=== PATIENT | female | born 1955 | race Caucasian/White ===

== ENCOUNTER 2021-01-30 11:23 | Emergency (ER) | payer MEDICARE, OTHER ==
[2021-01-30] MEDS ORDERED: Sodium Chloride 0.9% 10 ML Syringe FLUSH PRN (11:33)
[2021-01-30] MEDS ORDERED: Morphine 2 MG/ML SYRINGE IVPUSH ONE (11:38)
--- NOTE | 2021-01-30 12:10 | EDM.PDOC ---
ED HPI GENERAL MEDICAL PROBLEM - General Chief Complaint: Abdominal Pain Time Seen by Provider: 01/30/21 11:45 Source of Information: Reports: Patient, Family History Limitations: Reports: No Limitations - History of Present Illness INITIAL COMMENTS - FREE TEXT/NARRATIVE: Pt. presents to ER with complaints of diffuse abdominal discomfort. Pt. has been experiencing this symptoms since Friday. She had a normal BM yesterday. Denies any bloody stools. Denies any nausea or vomiting. No chest pain or shortness of breath. Pt. has a history of diverticulitis in the past. Pt. has a history of dementia and relies largely on her to provide history. Pt. denies any fever or chills. Onset: Today Location: Reports: Abdomen Abdomen Pain Score (Numeric/FACES): 8 - Related Data Allergies Allergy/AdvReac Type Severity Reaction Status Date / Time Latex, Natural Rubber Allergy Rash Verified 08/05/13 10:34 Home Meds: Home Meds Acetaminophen/Diphenhydramine [Tylenol Pm Ex-Strength Caplet] 1 each PO ASDIRECTED PRN 01/30/21 [History] Amoxicillin 500 mg PO TID 01/30/21 [History] Aspirin [Ecotrin EC] 81 mg PO DAILY 01/30/21 [History] Cholecalciferol (Vitamin D3) [Vitamin D3] 100 mcg PO DAILY 01/30/21 [History] Cholecalciferol (Vitamin D3) [Vitamin D3] 125 mcg PO BID 01/30/21 [History] Cyanocobalamin (Vitamin B12) [Vitamin B12] 2,000 mcg PO DAILY 01/30/21 [History] Donepezil HCl [Aricept] 5 mg PO DAILY 01/30/21 [History] Empagliflozin [Jardiance] 10 mg PO DAILY 01/30/21 [History] Gabapentin [Neurontin] 100 mg PO BID 01/30/21 [History] Hydrocodone/Acetaminophen [HYDROcodone-Acetaminophen 5-325 MG] 1 each PO ASDIRECTED PRN 01/30/21 [History] Levothyroxine 150 mcg PO ACBREAKFAST 01/30/21 [History] Losartan [Cozaar] 50 mg PO DAILY 01/30/21 [History] Orphenadrine [Norflex] 100 mg PO DAILY 01/30/21 [History] Oxybutynin Chloride [Ditropan Xl] 15 mg PO DAILY 01/30/21 [History] Simvastatin [Zocor] 80 mg PO BEDTIME 01/30/21 [History] metFORMIN [Glucophage XR] 1,000 mg PO WITHDINNER 01/30/21 [History] Social & Family History - Tobacco Use Tobacco Use Status *Q: Never Tobacco User - Recreational Drug Use Recreational Drug Use: No ED ROS GENERAL - Review of Systems Review Of Systems: See Below Constitutional: Reports: No Symptoms. Denies: Fever, Chills, Malaise, Weakness, Fatigue, Diaphoresis, Decreased Appetite HEENT: Reports: No Symptoms Respiratory: Reports: No Symptoms Cardiovascular: Reports: No Symptoms Endocrine: Reports: No Symptoms GI/Abdominal: Reports: Abdominal Pain : Reports: No Symptoms Musculoskeletal: Reports: No Symptoms Skin: Reports: No Symptoms Neurological: Reports: No Symptoms Psychiatric: Reports: No Symptoms Hematologic/Lymphatic: Reports: No Symptoms Immunologic: Reports: No Symptoms ED EXAM, GENERAL - Physical Exam Exam: See Below Exam Limited By: No Limitations General Appearance: Alert, WD/WN, No Apparent Distress Respiratory/Chest: No Respiratory Distress, Lungs Clear, Normal Breath Sounds, No Accessory Muscle Use, Chest Non-Tender Cardiovascular: Normal Peripheral Pulses, Regular Rate, Rhythm, No Edema, No Gallop, No JVD, No Murmur, No Rub Peripheral Pulses: 4+: Radial (L) GI/Abdominal: Normal Bowel Sounds, Soft, No Organomegaly, No Distention, No Mass, Tender (Pain on palpation of RUQ) (Female) Exam: Deferred Rectal (Female) Exam: Deferred Back Exam: Normal Inspection, Full Range of Motion Extremities: Normal Inspection, Normal Range of Motion, Non-Tender, No Pedal Edema, Normal Capillary Refill Neurological: Alert, Oriented, CN II-XII Intact, Normal Cognition, Normal Gait, Normal Reflexes, No Motor/Sensory Deficits Psychiatric: Normal Affect, Normal Mood Skin Exam: Warm, Dry, Intact, Normal Color, No Rash Course - Vital Signs Last Recorded V/S: Last Vital Signs Temp 37.1 C 01/30/21 11:45 Pulse 76 01/30/21 11:45 Resp 18 01/30/21 11:45 BP 102/59 L 01/30/21 11:45 Pulse Ox 96 01/30/21 11:45 - Orders/Labs/Meds Orders: Active Orders 24 hr Category Date Time Status CULTURE BLOOD [BC] Routine Lab 01/30/21 11:45 Received Sodium Chloride 0.9% [Saline Flush] Med 01/30/21 11:33 Active 10 ml FLUSH ASDIRECTED PRN Peripheral IV Insertion Adult [OM.PC] Routine Oth 01/30/21 11:34 Ordered Medication Orders Sodium Chloride (Sodium Chloride 0.9% 10 Ml Syringe) 10 ml FLUSH ASDIRECTED PRN PRN Reason: Keep Vein Open Last Admin: 01/30/21 12:11 Dose: 10 ml Documented by: AIMEE Labs: Laboratory Tests 01/30/21 01/30/21 01/30/21 Range/Units 11:45 11:45 11:45 WBC 13.6 H (4.0-10.0) x10^3/uL RBC 4.86 (4.00-5.50) x10^6/uL Hgb 14.5 (12.0-16.0) g/dL Hct 42.4 (33.0-47.0) % MCV 87.2 (78.0-93.0) fL MCH 29.8 (26.0-32.0) pg MCHC 34.2 (32.0-36.0) g/dL RDW Coeff of Abi 12.9 (10.0-15.0) % Plt Count 183 (130-400) x10^3/uL Immature Gran % (Auto) 0.30 (0.00-0.43) % Neut % (Auto) 75.5 (50.0-80.0) % Lymph % (Auto) 13.2 L (25.0-50.0) % [place] % (Auto) 10.8 (2.0-11.0) % Eos % (Auto) 0.1 (0.0-4.0) % Baso % (Auto) 0.1 L (0.2-1.2) % Neut # (Auto) 10.3 H (1.8-7.7) x10^3/uL Lymph # (Auto) 1.8 (1.0-4.8) x10^3/uL [place] # (Auto) 1.5 H (0.0-0.8) x10^3/uL Eos # (Auto) 0.0 (0.0-0.5) x10^3/uL Baso # (Auto) 0.0 (0.0-0.2) x10^3/uL Immature Gran # (Auto) 0.04 (0.00-0.07) x10^3/uL PT 10.9 (9.9-12.5) SEC INR 1.0 L (2.0-3.5) Sodium 137 (136-145) mmol/L Potassium 3.9 (3.5-5.1) mmol/L Chloride 104 (98-107) mmol/L Carbon Dioxide 23 (21-32) mmol/L Anion Gap 13.9 (5-15) mmol/L BUN 22 H (7-18) mg/dL Creatinine 1.2 H (0.55-1.02) mg/dL Est Cr Clr Drug Dosing 45.89 mL/min Estimated GFR (MDRD) 45 Glucose 167 H (70-99) mg/dL Lactic Acid (0.4-2.0) mmol/L Calcium 8.9 (8.5-10.1) mg/dL Corrected Calcium 9.6 (8.5-10.1) mg/dL Phosphorus 3.4 (2.6-4.7) mg/dL Magnesium 1.8 (1.8-2.4) mg/dL Total Bilirubin 0.7 (0.2-1.0) mg/dL AST 10 L (15-37) U/L ALT 13 L (14-59) U/L Alkaline Phosphatase 62 (46-116) U/L C-Reactive Protein 23.3 H (<=0.9) mg/dL Total Protein 6.9 (6.4-8.2) g/dL Albumin 3.1 L (3.4-5.0) g/dL Globulin 3.8 Albumin/Globulin Ratio 0.82 Amylase 28 (25-115) U/L Lipase 64 L (73-393) U/L Urine Color (YELLOW) Urine Appearance (CLEAR) Urine pH (5.0-8.0) Ur Specific [place] Urine Protein (NEGATIVE) mg/dL Urine Glucose (UA) (NEGATIVE) mg/dL Urine Ketones (NEGATIVE) mg/dL Urine Occult Blood (NEGATIVE) Urine Nitrite (NEGATIVE) Urine Bilirubin (NEGATIVE) Urine Urobilinogen (0.2) EU/dL Ur Leukocyte Esterase (NEGATIVE) Urine RBC (NOT SEEN) /HPF Urine WBC (NOT SEEN) /HPF Ur Squamous Epith Cells (NOT SEEN) /HPF Urine Bacteria (NOT SEEN) /HPF Urine Mucus (NOT SEEN) /LPF 01/30/21 01/30/21 Range/Units 11:45 12:50 WBC (4.0-10.0) x10^3/uL RBC (4.00-5.50) x10^6/uL Hgb (12.0-16.0) g/dL Hct (33.0-47.0) % MCV (78.0-93.0) fL MCH (26.0-32.0) pg MCHC (32.0-36.0) g/dL RDW Coeff of Abi (10.0-15.0) % Plt Count (130-400) x10^3/uL Immature Gran % (Auto) (0.00-0.43) % Neut % (Auto) (50.0-80.0) % Lymph % (Auto) (25.0-50.0) % [place] % (Auto) (2.0-11.0) % Eos % (Auto) (0.0-4.0) % Baso % (Auto) (0.2-1.2) % Neut # (Auto) (1.8-7.7) x10^3/uL Lymph # (Auto) (1.0-4.8) x10^3/uL [place] # (Auto) (0.0-0.8) x10^3/uL Eos # (Auto) (0.0-0.5) x10^3/uL Baso # (Auto) (0.0-0.2) x10^3/uL Immature Gran # (Auto) (0.00-0.07) x10^3/uL PT (9.9-12.5) SEC INR (2.0-3.5) Sodium (136-145) mmol/L Potassium (3.5-5.1) mmol/L Chloride (98-107) mmol/L Carbon Dioxide (21-32) mmol/L Anion Gap (5-15) mmol/L BUN (7-18) mg/dL Creatinine (0.55-1.02) mg/dL Est Cr Clr Drug Dosing mL/min Estimated GFR (MDRD) Glucose (70-99) mg/dL Lactic Acid 1.0 (0.4-2.0) mmol/L Calcium (8.5-10.1) mg/dL Corrected Calcium (8.5-10.1) mg/dL Phosphorus (2.6-4.7) mg/dL Magnesium (1.8-2.4) mg/dL Total Bilirubin (0.2-1.0) mg/dL AST (15-37) U/L ALT (14-59) U/L Alkaline Phosphatase (46-116) U/L C-Reactive Protein (<=0.9) mg/dL Total Protein (6.4-8.2) g/dL Albumin (3.4-5.0) g/dL Globulin Albumin/Globulin Ratio Amylase (25-115) U/L Lipase (73-393) U/L Urine Color Yellow (YELLOW) Urine Appearance Clear (CLEAR) Urine pH 5.5 (5.0-8.0) Ur Specific [place] 1.020 Urine Protein 100 H (NEGATIVE) mg/dL Urine Glucose (UA) 500 H (NEGATIVE) mg/dL Urine Ketones Trace H (NEGATIVE) mg/dL Urine Occult Blood Moderate H (NEGATIVE) Urine Nitrite Negative (NEGATIVE) Urine Bilirubin Small H (NEGATIVE) Urine Urobilinogen 0.2 (0.2) EU/dL Ur Leukocyte Esterase Negative (NEGATIVE) Urine RBC 10-20 H (NOT SEEN) /HPF Urine WBC 0-5 (NOT SEEN) /HPF Ur Squamous Epith Cells Few H (NOT SEEN) /HPF Urine Bacteria Rare (NOT SEEN) /HPF Urine Mucus Rare H (NOT SEEN) /LPF Meds: Medications Generic Name Dose Route Start Last Admin Trade Name Freq PRN Reason Stop Dose Admin Sodium Chloride 10 ml 01/30/21 11:33 01/30/21 12:11 Sodium Chloride 0.9% 10 Ml Syringe FLUSH 10 ml ASDIRECTED PRN Administration Keep Vein Open Discontinued Medications Generic Name Dose Route Start Last Admin Trade Name Freq PRN Reason Stop Dose Admin Iopamidol 100 ml 01/30/21 15:08 01/30/21 13:06 Iopamidol 612 Mg/Ml 100 Ml Bottle IVPUSH 01/30/21 15:09 100 ml ONETIME ONE Administration Morphine Sulfate 2 mg 01/30/21 11:38 01/30/21 12:11 Morphine 2 Mg/Ml Syringe IVPUSH 01/30/21 11:39 2 mg ONETIME ONE Administration - Radiology Interpretation Free Text/Narrative:: Acute calculus cholecystitis with surrounding inflammatory changes noted. Departure - Departure Time of Disposition: 15:34 Disposition: DC/Tfer to Acute Hospital 02 Clinical Impression: Cholecystitis - Discharge Information Forms: ED Department Discharge Sepsis Event Note (ED) - Evaluation Sepsis Screening Result: No Definite Risk - Focused Exam Vital Signs: Vital Signs Temp Pulse Resp BP Pulse Ox 01/30/21 11:45 37.1 C 76 18 102/59 L 96 - Problem List Review Problem List Initiated/Reviewed/Updated: Yes - My Orders Last 24 Hours: My Active Orders 01/30/21 11:33 Sodium Chloride 0.9% [Saline Flush] 10 ml FLUSH ASDIRECTED PRN 01/30/21 11:34 Peripheral IV Insertion Adult [OM.PC] Routine 01/30/21 11:45 CULTURE BLOOD [BC] Routine - Assessment/Plan Last 24 Hours: My Active Orders 01/30/21 11:33 Sodium Chloride 0.9% [Saline Flush] 10 ml FLUSH ASDIRECTED PRN 01/30/21 11:34 Peripheral IV Insertion Adult [OM.PC] Routine 01/30/21 11:45 CULTURE BLOOD [BC] Routine Plan: Pt. will travel to [facility] in [place] for admission and subsequent cholecystectomy. Pt. is adamant that she go by POV. CD of CT scan was sent with the patient, as well as all relevant paperwork. IV was kept in place.
[2021-01-30 12:22] LABS: ANION GAP 13.9 mmol/L (5-15)
--- NOTE | 2021-01-30 15:03 | CT ---
[id number] CT/CT Abdomen Pelvis W IV EXAM: CT Abdomen Pelvis W IV INDICATION: ABDOMEN PAIN, ELEVATED WHITE COUNT. COMPARISON: None. DISCUSSION: Cholelithiasis. The gallbladder is thick-walled and there are mild adjacent inflammatory changes suggestive of cholecystitis. Small volume free fluid in the pelvis. No abscess. Small moderate fat-containing umbilical hernia. Previous hysterectomy. Numerous diverticula of the colon without evidence of diverticulitis. Mild splenomegaly.13 mm exophytic right renal cyst. Hepatic steatosis. Grade 1 degenerative L4-L5 spondylolisthesis. Degenerative changes throughout the spine. The pancreas, adrenal glands, left kidney, and small bowel are normal in appearance. The appendix is not identified. IMPRESSION: 1. Acute calculus cholecystitis. Jitendra Dubose MD 01/30/21 [id number] Thank you for allowing us to participate in the care of your patient.
[2021-01-30] MEDS ORDERED: Iopamidol 612 MG/ML 100 ML Bottle IVPUSH ONE (15:08)
[2021-01-30 15:36] VITALS: BP 116/91; PULSE 71
== END 2021-01-30 15:50 | disposition short-term general hospital (02) ==
LOC: VM.ED 11:23
DX: K81.9 Cholecystitis, unspecified (principal); F03.90 Unspecified dementia, unspecified severity, without behavioral disturbance, psychotic disturbance, mood disturbance, and anxiety; Z91.040 Latex allergy status; Z79.82 Long term (current) use of aspirin; Z79.899 Other long term (current) drug therapy
CPT/HCPCS: 36415; 74177; 80053; 81001; 82150; 83605; 83690; 83735; 84100; 85025; 85610; 86140; 87040; 96374; 99283; 99285-25; J2270; Q9967

== ENCOUNTER 2023-10-27 12:06 | Inpatient (IN) | payer MEDICARE, OTHER ==
[2023-10-27] MEDS ORDERED: Sodium Chloride 0.9% 10 ML Syringe FLUSH PRN (12:28)
[2023-10-27] MEDS: Lactated Ringers 1,000 ML IV SCH (12:50)
[2023-10-27 12:54] LABS: BASOPHILS PERCENT AUTO 0.1 % (0.2-1.2); EOSINOPHILS PERCENT AUTO 0.1 % (0.0-4.0); HEMATOCRIT 41.3 % (33.0-47.0); HEMOGLOBIN 14.5 g/dL (12.0-16.0); IMMATURE GRAN ABSOLUTE AUTO 0.03 x10^3/uL (0.00-0.07); LYMPHOCYTES ABSOLUTE AUTO 1.1 x10^3/uL (1.0-4.8); MEAN CORPUSCULAR HEMOGLOBIN 29.6 pg (26.0-32.0); MEAN CORPUSCULAR HGB CONC 35.1 g/dL (32.0-36.0); MEAN CORPUSCULAR VOLUME 84.3 fL (78.0-93.0); MONOCYTES ABSOLUTE AUTO 0.6 x10^3/uL (0.0-0.8); NEUTROPHILS ABSOLUTE AUTO 8.2 x10^3/uL (1.8-7.7); NEUTROPHILS PERCENT AUTO 82.5 % (50.0-80.0); PLATELET COUNT,PLT 194 x10^3/uL (130-400)
[2023-10-27 13:02] LABS: APPEARANCE,URINE CLOUDY (CLEAR); BILIRUBIN,URINE LARGE (NEGATIVE); COLOR,URINE BROWN (YELLOW); GLUCOSE,URINE 100 mg/dL (NEGATIVE); KETONES,URINE 15 mg/dL (NEGATIVE); LEUKOCYTE ESTERASE,URINE NEGATIVE (NEGATIVE); NITRITE,URINE NEGATIVE (NEGATIVE); OCCULT BLOOD,URINE NEGATIVE (NEGATIVE); PROTEIN,URINE 100 mg/dL (NEGATIVE)
[2023-10-27 13:10] LABS: SQUAMOUS EPITHELIAL CELLS,UR OCCASIONAL /HPF (NOT SEEN); WBC,URINE 0-5 /HPF (NOT SEEN)
[2023-10-27 13:11] LABS: AMORPHOUS SEDIMENT,URINE OCCASIONAL; BACTERIA,URINE FEW /HPF (NOT SEEN); HYALINE CASTS,URINE MODERATE; MUCUS,URINE MODERATE /LPF (NOT SEEN)
[2023-10-27 13:13] LABS: ALANINE AMINOTRANSFERASE,ALT 19 U/L (14-59); ALBUMIN 3.6 g/dL (3.4-5.0); ALKALINE PHOSPHATASE 74 U/L (46-116); ASPARTATE AMNIOTRANSFERASE,AST 27 U/L (15-37); BILIRUBIN TOTAL 1.1 mg/dL (0.2-1.0); BLOOD UREA NITROGEN,BUN 21 mg/dL (7-18); CALCIUM 10.2 mg/dL (8.5-10.1); CARBON DIOXIDE,CO2 22 mmol/L (21-32); CHLORIDE,CL 104 mmol/L (98-107); CREATININE 1.3 mg/dL (0.55-1.02); GLUCOSE RANDOM 144 mg/dL (70-99); MAGNESIUM 1.4 mg/dL (1.8-2.4); POTASSIUM,K 3.9 mmol/L (3.5-5.1); PROTEIN TOTAL,TP 7.6 g/dL (6.4-8.2); SODIUM,NA 142 mmol/L (136-145)
[2023-10-27 13:16] LABS: ANION GAP 19.9 mmol/L (5-15); ESTIMATED GFR 44 mL/min (>=60)
[2023-10-27 13:20] LABS: LACTIC ACID 2.9 mmol/L (0.4-2.0)
[2023-10-27] MEDS ORDERED: Ondansetron 4 MG Tab.DIS PO PRN (14:07)
[2023-10-27] MEDS: Dextrose 5%-0.9% NaCl 1,000 ML IV SCH (14:17)
[2023-10-27] MEDS ORDERED: LORazepam 1 MG Tab PO PRN (14:25)
[2023-10-27] MEDS ORDERED: Dextrose 5%-Lactated Ringers 1,000 ML IV SCH ×2 (15:40→16:30)
[2023-10-27] MEDS: cefTRIAXone 2 GM Vial IVPUSH SCH (16:00)
[2023-10-27] MEDS: Miconazole 2% Top Powder 45 GM Container TOP SCH (16:21)
[2023-10-27] MEDS: Magnesium Oxide 400 MG Tab PO SCH (16:26)
[2023-10-27] MEDS: Enoxaparin 40 MG/0.4 ML Syringe SUBCUT SCH (20:24)
[2023-10-27] MEDS: QUEtiapine 25 MG Tab PO SCH (20:24)
[2023-10-27] MEDS: Gabapentin 100 MG Cap PO SCH (20:25)
[2023-10-27] MEDS: Donepezil 10 MG Tab PO SCH (20:25)
[2023-10-27] MEDS: Simvastatin 20 MG Tab PO SCH (20:25)
[2023-10-27] MEDS: Menthol/Zinc Oxide Ointment 3.5 GM Tube TOP SCH (20:25)
[2023-10-27] MEDS: Gentamicin 0.3% Ophth Soln 5 ML Bottle EYEBOTH SCH (20:31)
[2023-10-28] MEDS: Levothyroxine 112 MCG Tab PO SCH (06:01)
[2023-10-28 06:57] LABS: BASOPHILS PERCENT AUTO 0.3 % (0.2-1.2); EOSINOPHILS ABSOLUTE AUTO 0.1 x10^3/uL (0.0-0.5); EOSINOPHILS PERCENT AUTO 1.5 % (0.0-4.0); HEMATOCRIT 36.9 % (33.0-47.0); HEMOGLOBIN 12.5 g/dL (12.0-16.0); IMMATURE GRAN ABSOLUTE AUTO 0.01 x10^3/uL (0.00-0.07); MEAN CORPUSCULAR HEMOGLOBIN 29.4 pg (26.0-32.0); MEAN CORPUSCULAR HGB CONC 33.9 g/dL (32.0-36.0); MEAN CORPUSCULAR VOLUME 86.8 fL (78.0-93.0); MONOCYTES ABSOLUTE AUTO 0.8 x10^3/uL (0.0-0.8); MONOCYTES PERCENT AUTO 12.1 % (2.0-11.0); NEUTROPHILS ABSOLUTE AUTO 3.6 x10^3/uL (1.8-7.7); NEUTROPHILS PERCENT AUTO 54.9 % (50.0-80.0); PLATELET COUNT,PLT 170 x10^3/uL (130-400); RED BLOOD CELL COUNT 4.25 x10^6/uL (4.00-5.50); WHITE BLOOD CELL COUNT,WBC 6.5 x10^3/uL (4.0-10.0)
[2023-10-28 07:16] LABS: APPEARANCE,URINE CLOUDY (CLEAR); BILIRUBIN,URINE MODERATE (NEGATIVE); COLOR,URINE YELLOW (YELLOW); GLUCOSE,URINE NEGATIVE (NEGATIVE); KETONES,URINE 15 mg/dL (NEGATIVE); LEUKOCYTE ESTERASE,URINE NEGATIVE (NEGATIVE); NITRITE,URINE NEGATIVE (NEGATIVE); OCCULT BLOOD,URINE TRACE-LYSED (NEGATIVE); PH,URINE 5.5 (5.0-8.0); PROTEIN,URINE 100 mg/dL (NEGATIVE)
[2023-10-28 07:26] LABS: BACTERIA,URINE MODERATE /HPF (NOT SEEN); RBC,URINE 0-5 /HPF (NOT SEEN); SQUAMOUS EPITHELIAL CELLS,UR OCCASIONAL /HPF (NOT SEEN); WBC,URINE 0-5 /HPF (NOT SEEN)
[2023-10-28 07:27] LABS: AMORPHOUS SEDIMENT,URINE MODERATE
[2023-10-28 07:29] LABS: A/G RATIO 0.78; ALANINE AMINOTRANSFERASE,ALT 19 U/L (14-59); ALBUMIN 2.9 g/dL (3.4-5.0); ALKALINE PHOSPHATASE 61 U/L (46-116); ASPARTATE AMNIOTRANSFERASE,AST 20 U/L (15-37); BILIRUBIN TOTAL 0.5 mg/dL (0.2-1.0); BLOOD UREA NITROGEN,BUN 15 mg/dL (7-18); CALCIUM 8.8 mg/dL (8.5-10.1); CARBON DIOXIDE,CO2 26 mmol/L (21-32); CHLORIDE,CL 110 mmol/L (98-107); CREATININE 1.1 mg/dL (0.55-1.02); EST CRCL DRUG DOSING (CG) 48.01 mL/min; GLUCOSE RANDOM 135 mg/dL (70-99); PROTEIN TOTAL,TP 6.6 g/dL (6.4-8.2); SODIUM,NA 146 mmol/L (136-145); TSH ULTRASENSITIVE 0.214 uIU/mL (0.358-3.74)
[2023-10-28 07:33] LABS: ANION GAP 12.8 mmol/L (5-15); C-REACTIVE PROTEIN < 0.50 mg/dL (<=0.50); ESTIMATED GFR 54 mL/min (>=60); POTASSIUM,K 2.8 mmol/L (3.5-5.1)
[2023-10-28] MEDS: Potassium Chloride Riders 10 MEQ in Premix Bag 1 BAG IV ONE (09:24)
[2023-10-28] MEDS: Losartan 25 MG Tab PO SCH (09:52)
[2023-10-28] MEDS: Cyanocobalamin (Vitamin B12) 1,000 MCG Tab PO SCH (09:53)
[2023-10-28] MEDS: D5%-0.9% NaCl w/ KCl 40 meq 1,000 ML IV SCH (10:48)
[2023-10-28] MEDS: Oxybutynin 5 MG Tab.ER PO SCH (17:11)
[2023-10-28] MEDS: NACL IV SCH (17:12)
[2023-10-28] MEDS: [UNRECOGNIZED DRUG - OTHER] IV SCH (17:12)
[2023-10-28] MEDS: KCL IV SCH (17:12)
[2023-10-28] MEDS: DEXTROSE IV SCH (17:12)
[2023-10-28] MEDS ORDERED: Flumazenil 0.1 MG/ML 5 ML MDV IVPUSH PRN (20:06)
[2023-10-28] MEDS ORDERED: LORazepam 2 MG/ML SDV IVPUSH PRN (20:06)
[2023-10-29] MEDS: Levothyroxine 100 MCG Tab PO SCH (06:14)
[2023-10-29 06:56] LABS: ANION GAP 13.7 mmol/L (5-15); CALCIUM 8.6 mg/dL (8.5-10.1); CREATININE 0.9 mg/dL (0.55-1.02); EST CRCL DRUG DOSING (CG) 58.67 mL/min; MAGNESIUM 1.2 mg/dL (1.8-2.4); POTASSIUM,K 3.7 mmol/L (3.5-5.1)
[2023-10-29] MEDS: Magnesium Sulfate/Water 2 GM in Premix Bag 1 BAG IV ONE (09:11)
[2023-10-29] MEDS: Magnesium Oxide 400 MG Tab PO SCH (09:16)
[2023-10-29] MEDS: QUEtiapine 25 MG Tab PO SCH (20:28)
[2023-10-30 07:13] LABS: CALCIUM 8.6 mg/dL (8.5-10.1); CREATININE 0.8 mg/dL (0.55-1.02); EST CRCL DRUG DOSING (CG) 66.01 mL/min; MAGNESIUM 1.5 mg/dL (1.8-2.4); POTASSIUM,K 3.7 mmol/L (3.5-5.1)
[2023-10-30 07:16] LABS: ANION GAP 10.7 mmol/L (5-15)
[2023-10-31 07:13] LABS: CALCIUM 8.6 mg/dL (8.5-10.1); CREATININE 0.8 mg/dL (0.55-1.02); EST CRCL DRUG DOSING (CG) 66.01 mL/min; POTASSIUM,K 3.5 mmol/L (3.5-5.1)
[2023-10-31 07:16] LABS: ANION GAP 14.5 mmol/L (5-15)
== END 2023-10-31 11:20 | DRG 641 ==
LOC: VM.ED 12:06 → VM.MS 14:01
PROVIDERS: ADMIT Family Medicine; ATTEND Family Medicine
DX: S31.000A Unspecified open wound of lower back and pelvis without penetration into retroperitoneum, initial encounter (principal); E86.0 Dehydration; R53.1 Weakness; F02.C4 Dementia in other diseases classified elsewhere, severe, with anxiety; N19 Unspecified kidney failure; E87.6 Hypokalemia; Z79.899 Other long term (current) drug therapy; X58.XXXA Exposure to other specified factors, initial encounter; E83.42 Hypomagnesemia; G30.9 Alzheimer's disease, unspecified; G89.29 Other chronic pain; M54.50 Low back pain, unspecified; L30.4 Erythema intertrigo; H10.9 Unspecified conjunctivitis; L89.159 Pressure ulcer of sacral region, unspecified stage; E11.22 Type 2 diabetes mellitus with diabetic chronic kidney disease; E03.9 Hypothyroidism, unspecified; I12.9 Hypertensive chronic kidney disease with stage 1 through stage 4 chronic kidney disease, or unspecified chronic kidney disease; N18.31 Chronic kidney disease, stage 3a; E66.01 Morbid (severe) obesity due to excess calories; E78.00 Pure hypercholesterolemia, unspecified; Z91.040 Latex allergy status; Z88.8 Allergy status to other drugs, medicaments and biological substances; Z79.4 Long term (current) use of insulin; Z90.710 Acquired absence of both cervix and uterus; Z90.49 Acquired absence of other specified parts of digestive tract; Z98.51 Tubal ligation status; Z90.89 Acquired absence of other organs; Z91.412 Personal history of adult neglect; Z68.27 Body mass index [BMI] 27.0-27.9, adult
CPT/HCPCS: 36415; 51702; 71045; 80048; 80053; 81001; 82947; 83605; 83735; 84132; 84145; 84443; 85025; 86140; 87086; 93005; 96360; 99284; 99285-25; A9270-GY; J0696; J1650; J3475; J3480; J7042; J7120